=== PATIENT | male | born 1985 | race Native Hawaiian/Other Pacific Islander ===

== ENCOUNTER 2018-07-10 18:30 | Emergency (ER) | payer OTHER ==
[~2018-07-10] VITALS: Ht 180.3 cm; Wt 72.6 kg
[2018-07-10 19:12] VITALS: BP 128/86; TEMP 98.1
== END 2018-07-10 19:14 | disposition home or self-care (01) ==
LOC: ED 18:30
DX: H10.33 Unspecified acute conjunctivitis, bilateral (principal)
CPT/HCPCS: 99283

== ENCOUNTER 2019-01-21 00:02 | Emergency (ER) | payer OTHER ==
[~2019-01-21] VITALS: Ht 180.3 cm; Wt 72.6 kg
[2019-01-21 00:32] VITALS: BP 148/80; TEMP 98.5
== END 2019-01-21 00:34 | disposition home or self-care (01) ==
LOC: ED 00:02
DX: F41.9 Anxiety disorder, unspecified (principal)
CPT/HCPCS: 96372; 99282; J2060